=== PATIENT | female | born 2000 | race Caucasian/White ===

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

== ENCOUNTER 2021-11-06 20:31 | Emergency (ER) | payer BC ==
[~2021-11-06] VITALS: Ht 175.3 cm; Wt 86.4 kg
[2021-11-06 20:43] VITALS: TEMP 100.2
[2021-11-06] MEDS ORDERED: MAGIC MOUTH PO (21:28)
[2021-11-06] MEDS ORDERED: ZOFRAN 4MG T4 MG/TAB PO (21:28)
[2021-11-06 21:40] VITALS: BP 118/67; PULSE 78
== END 2021-11-06 21:43 | disposition home or self-care (01) ==
LOC: COL.ER 20:31
DX: J35.1 Hypertrophy of tonsils (principal); J02.0 Streptococcal pharyngitis; Z28.310 Unvaccinated for COVID-19
CPT/HCPCS: J1100

== ENCOUNTER → 2023-08-02 | Outpatient (CLI) | payer BC ==
[~2023-08-02] MED LIST changes: +ELURYNG VAGINA1 EACH; +Iohexol 300 - 100 ML VIAL IV ONE; +MAGIC MOUTH PO; +PROTONIX 40MG T40 MG PO; +VITAMIN D 50,1.25 MG PO
== END ==
LOC: COL.RAD 14:30
DX: K52.9 Noninfective gastroenteritis and colitis, unspecified (principal); R59.0 Localized enlarged lymph nodes
CPT/HCPCS: Q9967

== ENCOUNTER 2023-09-03 09:17 | Day surgery (SDC) | payer BC ==
[~2023-09-03] VITALS: Ht 175.3 cm; Wt 103.4 kg
[~2023-09-03 09:17] MED LIST changes: -ELURYNG VAGINA1 EACH; -Iohexol 300 - 100 ML VIAL IV ONE; +LR 1,000 ML IV SCH; +Ondansetron 4 MG/2 ML VIAL IV PRN; -PROTONIX 40MG T40 MG PO; -VITAMIN D 50,1.25 MG PO
[2023-09-03 10:29] VITALS: BP 117/78; PULSE 67; TEMP 97.5
[2023-09-03] MEDS ORDERED: VITAMIN D 50,1.25 MG PO (10:33)
[2023-09-03] MEDS ORDERED: PROTONIX 40MG T40 MG PO (10:34)
[2023-09-03] MEDS ORDERED: ELURYNG VAGINA1 EACH (10:34)
[2023-09-03] MEDS ORDERED: Glycopyrrolate 0.2 MG/ML 1 ML VIAL ONE (11:18)
[2023-09-03] MEDS ORDERED: Lidocaine PF 2% (20 MG/ML) 5 ML VIAL ONE (11:18)
[2023-09-03 12:15] VITALS: BP 111/75; PULSE 62; TEMP 97.9
[2023-09-03 12:30] VITALS: BP 112/89; PULSE 72
[2023-09-03 12:42] VITALS: BP 110/70; PULSE 62
--- NOTE | 2023-09-03 13:06 | NUR ---
[id number] Patient admitted to Endo Patient ambulatory to bay 6 with steady gait, breathing even and unlabored. Pt is alert and oriented. Consents reviewed and signed by the patient. IV established. Lab specimen obtained with IV start and taken to the lab. LR infusion via gravity at [facility]. Call light in reach. Warm blanket provided.
--- NOTE | 2023-09-03 13:18 | NUR ---
1215: pt arrived to bay 6 - ambulated from cart to chair with standby assist 1218: pt tolerating po intake well 1240: pt verbalizes understanding discharge materials 1300: MD Lucie in room with pt 1315: pt escorted out via wheelchair to vehicle driven by pt's mother
== END 2023-09-03 13:15 | disposition home or self-care (01) ==
LOC: SDCO 09:17
PROVIDERS: Internal Medicine Gastroenterology
DX: K20.90 Esophagitis, unspecified without bleeding (principal); K22.89 Other specified disease of esophagus; I88.0 Nonspecific mesenteric lymphadenitis; R19.7 Diarrhea, unspecified; R14.0 Abdominal distension (gaseous)
CPT/HCPCS: J2704; J7120